=== PATIENT | female | born 1945 | race Caucasian/White ===

== ENCOUNTER 2019-02-02 01:47 | Emergency (ER) | payer MEDICARE, OTHER ==
[~2019-02-02] VITALS: Ht 152.4 cm; Wt 108.9 kg
[2019-02-02] MEDS ORDERED: PENICILLIN V P500 MG PO (01:58)
[2019-02-02] MEDS ORDERED: HYDROCODON-ACE1 EAC7 PO (01:58)
[2019-02-02] MEDS ORDERED: COZAAR 25 MG TA25 M1 PO (02:13)
[2019-02-02] MEDS ORDERED: METFORMIN HCL500 MG PO (02:13)
[2019-02-02] MEDS ORDERED: KLOR-CON 1010 MEQ PO (02:13)
[2019-02-02] MEDS ORDERED: COUMADIN 4 MG TA4 M1 PO (02:13)
[2019-02-02] MEDS ORDERED: NEURONTIN 300300 M1 PO (02:14)
[2019-02-02] MEDS ORDERED: PRAVACHOL40 MG PO (02:14)
[2019-02-02] MEDS ORDERED: VERAPAMIL ER180 M1 PO (02:15)
[2019-02-02] MEDS ORDERED: PRAVACHOL80 MG PO (02:15)
[2019-02-02] MEDS ORDERED: LOPRESSOR25 PO (02:16)
[2019-02-02] MEDS ORDERED: LASIX 40 MG TAB40 M2 PO (02:16)
[2019-02-02] MEDS ORDERED: LASIX 20 MG TAB20 MG PO (02:16)
[2019-02-02] MEDS ORDERED: DIGOXIN125 MCG PO (02:16)
[2019-02-02] MEDS ORDERED: MULTI VITAMIN1 EACH PO (02:17)
[2019-02-02 02:50] LABS: ABSOLUTE BASOPHILS 0.1 thou/uL (0.0-0.2); ABSOLUTE EOSINOPHILS 0.2 thou/uL (0.0-0.7); ABSOLUTE LYMPHOCYTES 1.7 thou/uL (0.8-5.3); ABSOLUTE MONOCYTES 0.8 thou/uL (0.0-1.2); BASOPHILS 1.3 %; EOSINOPHILS 1.6 %; HEMATOCRIT 37.7 % (37.0-47.0); HEMOGLOBIN 12.7 gm/dL (12.0-15.0); LYMPHOCYTES 17.3 %; MCHC 33.6 g/dL (28.0-37.0); MCV 95.3 fL (80.0-100.0); MONOCYTES 8.5 %; MPV 8.4 fl. (7.2-11.1); NUCLEATED RBCS 0 /100WBC; PLATELET COUNT* 252 thou/uL (150-400); POLYS 71.3 %; RBC 3.96 mil/uL (4.20-5.00); RDW-CV 15.1 % (10.5-14.5); WBC 9.9 thou/uL (4.0-11.0)
[2019-02-02 02:58] LABS: INR 1.7; PROTIME 16.9 Seconds (9.20-11.50)
[2019-02-02 03:10] LABS: ANION GAP 8 mmol/L (7-16); BUN 33 mg/dL (7-18); CALCIUM 9.2 mg/dL (8.5-10.1); CHLORIDE 101 mmol/L (98-107); CO2 27 mmol/L (21-32); CREATININE 1.5 mg/dL (0.6-1.3); GLUCOSE 280 mg/dL (70-99); SODIUM 136 mmol/L (136-145); TROPONIN-I LEVEL <0.06 ng/mL (<0.06)
[2019-02-02 03:13] LABS: ALBUMIN 3.3 g/dL (3.4-5.0); ALKALINE PHOSPHATASE 53 U/L (46-116); NT-PRO BRAIN NAT PEPTIDE 2090 pg/mL (<300); SGOT 22 U/L (15-37); SGPT 34 U/L (30-65); TOTAL BILIRUBIN 0.3 mg/dL (<0.1-1.0); TOTAL PROTEIN 7.6 g/dL (6.4-8.2)
[2019-02-02] MEDS ORDERED: VERAPAMIL E.R240 M1 PO (03:41)
[2019-02-02 03:56] VITALS: BP 139/89
--- NOTE | 2019-02-02 09:43 | EKG ---
[place] [address] ELECTROCARDIOGRAM REPORT Name: GONZÁLEZ SALAZAR [id number] Admission: 02/02/19 Attend Phys: Discharge: 02/02/19 Date of : 45 Report #: [id number] THIS REPORT FOR: //name// [facility] Test Date: 2019-02-02 Test Time: 02:21:58 Pat Name: GONZÁLEZ SALAZAR Department: Room: Gender: F [employer] In[employer]ter: : 1945 Requested By: Ayush Morales Order Number: [id number] MD: Patrick Pride Measurements Intervals [place] Rate: 117 P: [place]: QRS: 21 QRSD: 91 T: 223 QT: 275 QTc: 384 Interpretive Statements Atrial fibrillation Low voltage, precordial leads Nonspecific repol abnormality, diffuse leads No previous ECG available for comparison Electronically Signed On 02-02-2019 9:43:28 CDT by Patrick Pride [email or web address] <ELECTRONICALLY SIGNED> By: Patrick Pride MD, [facility] 02/02/19 0943 0221 022 Patrick Pride MD, FACC /EPI
== END 2019-02-02 03:45 | disposition home or self-care (01) ==
LOC: M.ERS 01:47
PROVIDERS: Emergency Medicine
DX: I48.2 Chronic atrial fibrillation (principal); K02.9 Dental caries, unspecified; Z88.8 Allergy status to other drugs, medicaments and biological substances